=== PATIENT | male | born 1975 | race Caucasian/White ===

== ENCOUNTER 2022-10-21 07:10 | Day surgery (SDC) | payer OTHER ==
[2022-10-20 16:22] VITALS: BMI 28.5
[2022-10-21] MEDS ORDERED: Lidocaine 1% PF 5 ML VIAL ONE (07:54)
[2022-10-21] MEDS ORDERED: PROPOFOL 40 ML ONE (07:54)
== END 2022-10-21 09:30 | disposition home or self-care (01) ==
LOC: CSHSDC 07:10
PROVIDERS: ATTEND Internal Medicine Gastroenterology
PROC: 0DD68ZX Extraction of Stomach, Via Natural or Artificial Opening Endoscopic, Diagnostic (ICD-10-PCS; principal; 2022-10-21)
PROC: 0DD38ZX Extraction of Lower Esophagus, Via Natural or Artificial Opening Endoscopic, Diagnostic (ICD-10-PCS; principal; 2022-10-21)
DX: K21.01 Gastro-esophageal reflux disease with esophagitis, with bleeding (principal); K29.51 Unspecified chronic gastritis with bleeding; B96.81 Helicobacter pylori [H. pylori] as the cause of diseases classified elsewhere; K26.4 Chronic or unspecified duodenal ulcer with hemorrhage; K29.81 Duodenitis with bleeding; K22.11 Ulcer of esophagus with bleeding; K44.9 Diaphragmatic hernia without obstruction or gangrene; Z88.8 Allergy status to other drugs, medicaments and biological substances; I10 Essential (primary) hypertension; Z79.899 Other long term (current) drug therapy
CPT/HCPCS: 88305; J2704

== ENCOUNTER 2023-01-21 05:52 | Day surgery (SDC) | payer OTHER ==
[2023-01-19 13:51] VITALS: BMI 27.8
[2023-01-21] MEDS ORDERED: Lidocaine 1% PF 5 ML VIAL ONE (07:10)
[2023-01-21] MEDS ORDERED: PROPOFOL 40 ML ONE (07:10)
== END 2023-01-21 08:42 | disposition home or self-care (01) ==
LOC: CSHSDC 05:52
PROVIDERS: ATTEND Internal Medicine Gastroenterology
PROC: 0DBN8ZZ Excision of Sigmoid Colon, Via Natural or Artificial Opening Endoscopic (ICD-10-PCS; principal; 2023-01-21)
DX: K51.30 Ulcerative (chronic) rectosigmoiditis without complications (principal); K64.9 Unspecified hemorrhoids; K51.40 Inflammatory polyps of colon without complications; K92.1 Melena; R19.7 Diarrhea, unspecified; I10 Essential (primary) hypertension; E11.9 Type 2 diabetes mellitus without complications; K21.9 Gastro-esophageal reflux disease without esophagitis; Z88.6 Allergy status to analgesic agent; Z88.1 Allergy status to other antibiotic agents; Z88.8 Allergy status to other drugs, medicaments and biological substances; Z87.891 Personal history of nicotine dependence; Z79.899 Other long term (current) drug therapy
CPT/HCPCS: 88305; J2704

== ENCOUNTER 2024-01-14 07:26 | Day surgery (SDC) | payer OTHER ==
[2024-01-13 10:40] VITALS: BMI 27.1
[2024-01-14] MEDS ORDERED: PROPOFOL 20 ML ONE ×2 (10:36→10:44)
== END 2024-01-14 11:54 | disposition home or self-care (01) ==
LOC: CSHSDC 07:26
PROVIDERS: ATTEND Internal Medicine Gastroenterology
PROC: 0DBH8ZX Excision of Cecum, Via Natural or Artificial Opening Endoscopic, Diagnostic (ICD-10-PCS; principal; 2024-01-14)
PROC: 0DBM8ZX Excision of Descending Colon, Via Natural or Artificial Opening Endoscopic, Diagnostic (ICD-10-PCS; principal; 2024-01-14)
PROC: 0DBL8ZX Excision of Transverse Colon, Via Natural or Artificial Opening Endoscopic, Diagnostic (ICD-10-PCS; principal; 2024-01-14)
PROC: 0DBP8ZX Excision of Rectum, Via Natural or Artificial Opening Endoscopic, Diagnostic (ICD-10-PCS; principal; 2024-01-14)
DX: K51.40 Inflammatory polyps of colon without complications (principal); K51.90 Ulcerative colitis, unspecified, without complications; K92.1 Melena
CPT/HCPCS: 88305; J2704